=== PATIENT | female | born 1945 | race Caucasian/White ===

== ENCOUNTER → 2016-10-29 | Outpatient (CLI) | payer MEDICARE, BC | LOC: VM.DI 09:23 | PROVIDERS: ATTEND Internal Medicine Hematology & Oncology | DX: C50.411 Malignant neoplasm of upper-outer quadrant of right female breast (principal); M85.80 Other specified disorders of bone density and structure, unspecified site | CPT/HCPCS: 77080 ==

== ENCOUNTER 2020-10-12 10:25 | Day surgery (SDC) | payer MEDICARE, BC ==
[~2020-10-12 10:25] MED LIST: Lactated Ringers 1,000 ML IV SCH
[2020-10-12] MEDS ORDERED: Propofol 200 MG/20 ML SDV ONE ×2 (11:25→13:30)
[2020-10-12 14:05] VITALS: BP 144/81; PULSE 72
--- NOTE | 2020-10-13 11:14 | OR ---
DATE OF SURGERY: 10/12/2020. REFERRING PROVIDER: Alcira Mabry MD PRE-OPERATIVE DIAGNOSES: 1. History of colon polyps. Last colonoscopy in 2014 revealed 1 small adenoma at 10 cm near an area of scar tissue. 2. History of bleeding hemorrhoid. POST-OPERATIVE DIAGNOSES: 1. Recurrent 4 mm polyp at 10 cm at previous area of scar tissue. This was removed with hot snare and then the base cauterized around it. I do not know if there was much tissue remaining for pathology to interpret. 2. Tortuous colon. 3. Mild hemorrhoids. PROCEDURE: Colonoscopy with polypectomy x1 using hot snare. SURGEON: Hollis Biggs M.D. ANESTHESIA: Monitored anesthesia care. BOWEL PREP: Good. Yesi is a 75-year-old female who was brought to the endoscopy suite after discussing risks and benefits of the procedure. Informed consent was obtained for conscious sedation and colonoscopy with or without biopsy and/or polypectomy. We also discussed possibility of missed lesions. Pre-procedure exam was unremarkable. IV, oxygen, and monitors were placed. The patient was placed in the left lateral decubitus position. Sedation was administered and a digital rectal exam was performed and remarkable for some mild hemorrhoids. Colonoscope was passed into the rectum and slowly advanced all the way to the cecum. The patient did have quite tortuous colon which required some abdominal pressure and careful scope maneuvering to obtain cecal intubation. Cecum was viewed and photographed. The colonoscope was slowly withdrawn and the mucosa was closed observed in a direct circumferential manner. The ascending colon was unremarkable. The transverse colon was unremarkable. The descending colon was unremarkable. The sigmoid colon revealed 4 mm polyp at 10 cm, which seems to be recurrent polyp at previously scarred area. This was removed using hot snare, although most of the tissue ended up being cauterized. Also cauterized around the base. The rectum was otherwise remarkable for some mild hemorrhoids. Scope was removed. The patient tolerated the procedure well. The patient was monitored until that baseline status. Discharge instructions were reviewed and the patient was discharged in good condition. COMPLICATIONS: None. TOTAL TIME: 26 minutes. ESTIMATED BLOOD LOSS: Nil. RECOMMENDATIONS/FOLLOW-UP: We will await results of path report to determine ideal followup interval. I would like to kindly thank Dr. Mabry and Kim Black for this referral. DMB: 10/12/2020 14:06:57 MODL: 10/12/2020 15:22:51 /[id number]
== END 2020-10-12 15:00 | disposition home or self-care (01) ==
LOC: VM.SDS 10:25
PROVIDERS: ATTEND Family Medicine
DX: Z12.11 Encounter for screening for malignant neoplasm of colon (principal); K63.5 Polyp of colon; K64.9 Unspecified hemorrhoids; I10 Essential (primary) hypertension; E78.00 Pure hypercholesterolemia, unspecified; G47.33 Obstructive sleep apnea (adult) (pediatric); F41.1 Generalized anxiety disorder; G89.29 Other chronic pain; Z98.890 Other specified postprocedural states; Z87.891 Personal history of nicotine dependence; Z01.812 Encounter for preprocedural laboratory examination; Z20.828 Contact with and (suspected) exposure to other viral communicable diseases; Z79.899 Other long term (current) drug therapy; Z91.011 Allergy to milk products; Z91.013 Allergy to seafood; Z88.2 Allergy status to sulfonamides; Z91.040 Latex allergy status
CPT/HCPCS: 00811; 45385; J2704; J7120; U0002; 88305

== ENCOUNTER 2024-01-30 12:18 | Emergency (ER) | payer MEDICARE, BC ==
[2024-01-30 13:43] LABS: BASOPHILS PERCENT AUTO 0.2 % (0.2-1.2); HEMOGLOBIN 13.6 g/dL (12.0-16.0); IMMATURE GRAN ABSOLUTE AUTO 0.01 x10^3/uL (0.00-0.07); LYMPHOCYTES PERCENT AUTO 22.6 % (25.0-50.0); MEAN CORPUSCULAR HEMOGLOBIN 31.1 pg (26.0-32.0); MEAN CORPUSCULAR VOLUME 91.3 fL (78.0-93.0); MONOCYTES ABSOLUTE AUTO 0.9 x10^3/uL (0.0-0.8); MONOCYTES PERCENT AUTO 18.5 % (2.0-11.0); NEUTROPHILS ABSOLUTE AUTO 2.7 x10^3/uL (1.8-7.7); NEUTROPHILS PERCENT AUTO 58.5 % (50.0-80.0); PLATELET COUNT,PLT 165 x10^3/uL (130-400); RED BLOOD CELL COUNT 4.38 x10^6/uL (4.00-5.50); WHITE BLOOD CELL COUNT,WBC 4.6 x10^3/uL (4.0-10.0)
[2024-01-30 14:07] LABS: A/G RATIO 0.94; ALANINE AMINOTRANSFERASE,ALT 29 U/L (14-59); ALBUMIN 3.4 g/dL (3.4-5.0); ALKALINE PHOSPHATASE 62 U/L (46-116); ASPARTATE AMNIOTRANSFERASE,AST 29 U/L (15-37); BILIRUBIN TOTAL 0.3 mg/dL (0.2-1.0); BLOOD UREA NITROGEN,BUN 13 mg/dL (7-18); C-REACTIVE PROTEIN 0.64 mg/dL (<=0.50); CALCIUM 8.6 mg/dL (8.5-10.1); CARBON DIOXIDE,CO2 28 mmol/L (21-32); CHLORIDE,CL 96 mmol/L (98-107); CREATININE 0.9 mg/dL (0.55-1.02); ESTIMATED GFR 66 mL/min (>=60); GLUCOSE RANDOM 82 mg/dL (70-99); SODIUM,NA 133 mmol/L (136-145)
[2024-01-30 14:48] VITALS: BP 125/77; PULSE 80
[2024-01-30 14:59] LABS: BILIRUBIN,URINE NEGATIVE (NEGATIVE); COLOR,URINE YELLOW (YELLOW); GLUCOSE,URINE NEGATIVE (NEGATIVE); KETONES,URINE NEGATIVE (NEGATIVE); LEUKOCYTE ESTERASE,URINE NEGATIVE (NEGATIVE); NITRITE,URINE NEGATIVE (NEGATIVE); OCCULT BLOOD,URINE TRACE-INTACT (NEGATIVE); PROTEIN,URINE 30 mg/dL (NEGATIVE); UROBILINOGEN,URINE 0.2 EU/dL (0.2)
[2024-01-30 15:05] LABS: APPEARANCE,URINE SLIGHTLY CLOUDY (CLEAR)
[2024-01-30 15:06] LABS: BACTERIA,URINE OCCASIONAL /HPF (NOT SEEN); HYALINE CASTS,URINE OCCASIONAL; MUCUS,URINE FEW /LPF (NOT SEEN); RBC,URINE 0-5 /HPF (NOT SEEN); SQUAMOUS EPITHELIAL CELLS,UR FEW /HPF (NOT SEEN); WBC,URINE 0-5 /HPF (NOT SEEN)
== END 2024-01-30 15:18 | disposition home or self-care (01) ==
LOC: VM.ED 12:18
DX: R55 Syncope and collapse (principal); Z88.8 Allergy status to other drugs, medicaments and biological substances; Z91.040 Latex allergy status; Z88.6 Allergy status to analgesic agent; Z91.011 Allergy to milk products; Z88.2 Allergy status to sulfonamides; Z91.048 Other nonmedicinal substance allergy status; Z91.013 Allergy to seafood; Z90.49 Acquired absence of other specified parts of digestive tract; Z87.891 Personal history of nicotine dependence; Z79.899 Other long term (current) drug therapy
CPT/HCPCS: 36415; 70450; 80053; 81001; 82947; 84484; 85025; 86140; 93005; 99284

== ENCOUNTER 2025-06-06 12:19 | Emergency (ER) | payer MEDICARE, BC ==
[2025-06-06 16:23] VITALS: BP 139/81; PULSE 79
== END 2025-06-06 14:08 | disposition home or self-care (01) ==
LOC: VM.ED 12:19
DX: R21 Rash and other nonspecific skin eruption (principal); T36.0X5A Adverse effect of penicillins, initial encounter; J01.90 Acute sinusitis, unspecified; E78.00 Pure hypercholesterolemia, unspecified; Z88.8 Allergy status to other drugs, medicaments and biological substances; Z91.040 Latex allergy status; Z91.011 Allergy to milk products; Z88.2 Allergy status to sulfonamides; Z88.6 Allergy status to analgesic agent; Z91.048 Other nonmedicinal substance allergy status; Z91.013 Allergy to seafood; Z79.899 Other long term (current) drug therapy
CPT/HCPCS: 99283